=== PATIENT | male | born 1960 | race Caucasian/White ===

== ENCOUNTER 2024-09-23 21:27 | Emergency (ER) | payer OTHER, SELFPAY ==
--- NOTE | ~2024-09-23 | CT_ITS ---
EXAMINATION: CT brain wo con DATE: 09/23/2024 21:59 INDICATION: head injury . TECHNIQUE: Computed tomography (CT) of the head was performed without intravenous contrast. The mA wa s adjusted according to patient size. Iterative reconstruction technique was employed. The dose-lengt h product was 681.00 mGy-cm. COMPARISON: None. FINDINGS: No acute intracranial hemorrhage or extra-axial fluid collection. No hydrocephalus, mass, or herniation. No acute ischemic infarct. Unremarkable dural venous sinus attenuation. No acute osseous abnormality. Irregular lucent lesion in the midline frontal bone, with smooth overly ing cortices, without periosteal change, scalloping, or permeative change. Partial ethmoid opacification, the remaining aerated spaces are clear. Moderate atrophy and mild chronic white matter change. Atherosclerotic intracranial calcification. La rge area of encephalomalacia in the left middle cerebral artery territory, with significant extra-axi al dilatation of the left lateral ventricle. 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 IMPRESSION: No acute intracranial process. Lucent frontal bone lesion, without aggressive features. Recommend comparison to outside studies to a ssess stability. Reviewed, dictated and finalized at location K. MAN IMPRESSION: No acute intracranial process. Lucent frontal bone lesion, without aggressive features. Recommend comparison t o outside studies to assess stability.
--- NOTE | ~2024-09-23 | XR_ITS ---
EXAM: XR knee LT 3V DATE: 09/23/2024 22:10 HISTORY: trauma . COMPARISON: None available. FINDINGS: Normal mineralization. No fracture or dislocation. No lytic or blastic lesion. Mild tricom partmental osteoarthritis. No erosion or periosteal change. Atherosclerotic vascular calcifications. IMPRESSION: No acute osseous finding in the left knee. Reviewed, dictated and finalized at location K. 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
--- NOTE | ~2024-09-23 | XR_ITS ---
EXAM: XR hip LT 2V w AP pelvis DATE: 09/23/2024 22:10 HISTORY: trauma . COMPARISON: None available. FINDINGS: Normal mineralization. No fracture or dislocation. No lytic or blastic lesion. Mild bilate ral hip osteoarthritis. No erosion or periosteal change. Scattered vascular calcifications. Aortic en dograft. The distal end of the catheter projects over the right lower pelvis, possible suprapubic or Marsh catheter. The rectum is distended to 10.7 cm by formed stool. IMPRESSION: No acute osseous finding in the pelvis or bilateral hips. Possible fecal impaction. Reviewed, dictated and finalized at location K. PRESSER
[2024-09-23 16:23] VITALS: BP 115/85; PULSE 70; RESP 20; TEMP 36.3; O2SAT 94
--- NOTE | 2024-09-23 21:30 | ED.GENADULT ---
HPI - General Adult General Chief complaint: Urogenital-Male Stated complaint: Needs Suprapubic catheter changed History of Present Illness HPI narrative: 63-year-old male present to the emergency department for evaluation initially for complaint of urinary symptoms blood time of evaluation patient denies any abdominal pain and does complain of left hip and left knee pain after having a fall approximately 5 days ago. States he did strike his head but is unsure if he had any loss of consciousness. Related Data Allergies Allergy/AdvReac Type Severity Reaction Status Date / Time aspirin Allergy Intermediate Difficulty Verified 09/24/24 00:52 Breathing Penicillins AdvReac Mild Rash Verified 09/24/24 00:52 Review of Systems Review of Systems: All systems reviewed & are unremarkable except as noted in HPI and below Exam Narrative: APPEARANCE: Well appearing HEAD: normocephalic, atraumatic. EYES: PERRLA/EOMI, conjunctivae clear. NOSE: Normal no drainage EARS:TMS clear with good light reflex. THROAT: Pharynx clear, no exudate. NECK: Supple. No adenopathy, no masses. RESPIRATORY: Airway patent, respirations nonlabored. Clear to auscultation bilaterally, no rales, rhonchi, wheezing. CARDIOVASCULAR: Regular rate and rhythm without murmurs rubs or gallops. ABDOMINAL: Soft, nontender, nondistended, normal bowel sounds MUSCULOSKELETAL: Patient did complain of left hip and left knee pain NEURO: Alert. Cranial nerves II through XII intact. Grossly intact SKIN: Warm, dry. Normal Color Course Vital Signs Vital signs: Vital Signs Temperature 97.3 F L 09/23/24 16:23 Pulse Rate 70 09/23/24 16:23 Respiratory Rate 20 09/23/24 16:23 Blood Pressure 115/85 09/23/24 16:23 Pulse Oximetry 94 09/23/24 16:23 Temperature 98 F 09/24/24 00:54 Pulse Rate 63 09/24/24 00:54 Respiratory Rate 13 09/24/24 00:54 Blood Pressure 111/62 09/24/24 00:54 Pulse Oximetry 100 09/24/24 00:54 Medical Decision Making [facility] Narrative Medical decision making narrative: 63-year-old male presents emergency department for evaluation for a leaky suprapubic Marsh catheter. At time of evaluation patient was complaining of left leg pain. Imaging of hip and knee were negative. Patient reported having a fall few days ago so head CT was also ordered this was negative. UA was concerning for infection and patient was treated with IV Rocephin will be discharged back to his care facility on Rocephin. Suprapubic Marsh catheter could not be exchanged because we did not have the capability to lower the balloon. Marsh catheter does flush and drain without issue. Marsh bag was changed. prison was updated on the results of the workup and recommended follow-up. Differential Diagnosis Differential Diagnosis: COVID, RSV, influenza, hip fracture, knee fracture, UTI Vital Signs Vital Signs: Vital Signs Temperature 97.3 F L 09/23/24 16:23 Pulse Rate 70 09/23/24 16:23 Respiratory Rate 20 09/23/24 16:23 Blood Pressure 115/85 09/23/24 16:23 Pulse Oximetry 94 09/23/24 16:23 Temperature 98 F 09/24/24 00:54 Pulse Rate 63 09/24/24 00:54 Respiratory Rate 13 09/24/24 00:54 Blood Pressure 111/62 09/24/24 00:54 Pulse Oximetry 100 09/24/24 00:54 Lab Data Lab results reviewed: Yes I reviewed the patient's lab results. 09/23/24 22:37 09/23/24 22:37 Labs: Lab Results 09/23/24 09/23/24 Range/Units 22:37 22:59 WBC 9.6 (4.5-10.0) K/mm3 RBC 5.19 (4.6-6.20) M/mm3 Hgb 15.7 (14.0-18.0) g/dL Hct 47.7 (42.0-52.0) % MCV 91.9 (80-100) fl MCH 30.3 (26-34) pg MCHC 32.9 (32-36) g/dl RDW 14.1 (11.5-14.5) % Plt Count 139 L (150-375) k/mm3 MPV 9.2 (7.4-10.4) fl Immature Gran % (Auto) 0.3 (0-0.5) % Neut % (Auto) 77.1 H (45.5-73.1) % Lymph % (Auto) 11.2 L (18.3-44.2) % [place] % (Auto) 9.3 H (2.6-8.5) % Eos % (Auto) 1.7 (0-4.4) % Baso % (Auto) 0.4 (0.2-1.2) % Lymph # (Auto) 1.07 (0.9-3.2) K/mm3 [place] # (Auto) 0.9 H (0.1-0.6) K/mm3 Eos # (Auto) 0.2 (0-0.3) K/mm3 Baso # (Auto) 0.0 (0.0-0.1) K/mm3 Abs Immat Gran (auto) 0.03 (0.00-0.031) K/mm3 Absolute Neuts (auto) 7.4 H (1.3-6.7) K/mm3 Absolute Nucleated RBC 0.000 (0.0-0.012) K/mm3 Nucleated RBC % 0.0 (0.0-0.2) % % Immature Plt Fraction 2.0 (0.9-11.2) % PT 14.6 (11.1-14.7) Seconds INR 1.1 APTT 32.5 (22.3-36.8) Seconds Sodium 139 (137-145) mmol/L Potassium 4.3 (3.4-5.0) mmol/L Chloride 104 (98-107) mmol/L Carbon Dioxide 27 (22-30) mmol/L Anion Gap 8 (4-12) mmol/L BUN 22 H (9-20) mg/dL Creatinine 0.78 (0.7-1.3) mg/dL Estim Creat Clear Calc Not Reportable Estimated GFR > 60 (59 - ) Glucose 92 (65-110) mg/dL Calcium 9.5 (8.4-10.2) mg/dL Total Bilirubin 0.6 (0.2-1.3) mg/dL AST 30 (17-59) U/L ALT 40 (6-50) U/L Alkaline Phosphatase 144 H (38-126) U/L Total Protein 7.0 (6.3-8.2) g/dL Albumin 4.2 (3.5-5.1) g/dL Urine Color Dark yellow (Yellow) Urine Appearance Turbid H (Clear) Urine pH 5.5 (5.0-9.0) Ur Specific [place] 1.026 (1.001-1.035) Urine Protein 3+ H (Negative) mg/dL Urine Glucose (UA) Negative (Negative) mg/dL Urine Ketones Trace H (Negative) mg/dL Ur Blood (Man) 3+ H (Negative) Urine Nitrate Positive H (Negative) Urine Bilirubin 1+ H (Negative) Urine Urobilinogen 1.0 (<2.0) mg/dL Add Ur Microanalysis Reviewed Leukocyte Esterase Rfl 2+ H (Negative) LAZARO/UL Urine RBC >100 H (0-2) /hpf Urine WBC >100 H (0-3) /hpf Ur Squamous Epith Cells Moderate (Few) /hpf Urine Bacteria 4+ H /hpf Urine Casts >20 Imaging Data Radiologist's impression: Impressions Head CT 09/23/24 22:02 IMPRESSION: No acute intracranial process. Lucent frontal bone lesion, without aggressive features. Recommend comparison to outside studies to assess stability. Hip/Pelvis X-Ray 09/23/24 22:15 IMPRESSION: No acute osseous finding in the pelvis or bilateral hips. Possible fecal impaction. Knee X-Ray 09/23/24 22:17 IMPRESSION: No acute osseous finding in the left knee. Discharge Plan Discharge Clinical Impression: Urinary tract infection [facility] Dis[facility] Condition: Stable Instructions: Antibiotic Form Additional Instructions: Your suprapubic Marsh catheter needs to be exchanged. You are being started on antibiotics for urinary tract infection. Have close follow-up with your primary care physician to compare outpatient head CTs Patient Language: Amharic Prescriptions: New cephalexin 500 mg capsule 500 mg PO Q8H 7 Days Qty: 21 0RF Follow-up/Referrals: PHYSICIAN,RN INTERVENTIONAL [Primary Care Provider] -
[2024-09-23 22:15] VITALS: BP 120/70; PULSE 67; RESP 14; O2SAT 95
[2024-09-23 22:53] LABS: Basophils Percent Auto 0.4 % (0.2-1.2); Eosinophils Absolute Auto 0.2 K/mm3 (0-0.3); Eosinophils Percent Auto 1.7 % (0-4.4); Hematocrit 47.7 % (42.0-52.0); Hemoglobin 15.7 g/dL (14.0-18.0); Immature Granulocyte Absolute 0.03 K/mm3 (0.00-0.031); Immature Granulocyte Percent A 0.3 % (0-0.5); Lymphocytes Absolute Auto 1.07 K/mm3 (0.9-3.2); Lymphocytes Percent Auto 11.2 % (18.3-44.2); Mean Corpuscular HGB Conc 32.9 g/dl (32-36); Mean Corpuscular Hemoglobin 30.3 pg (26-34); Mean Corpuscular Volume 91.9 fl (80-100); Mean Platelet Volume 9.2 fl (7.4-10.4); Monocytes Absolute Auto 0.9 K/mm3 (0.1-0.6); Monocytes Percent Auto 9.3 % (2.6-8.5); Neutrophils Absolute Auto 7.4 K/mm3 (1.3-6.7); Neutrophils Percent Auto 77.1 % (45.5-73.1); Platelet Count Result 139 k/mm3 (150-375); Red Blood Count 5.19 M/mm3 (4.6-6.20); Red Cell Distribution Width 14.1 % (11.5-14.5); White Blood Count 9.6 K/mm3 (4.5-10.0)
[2024-09-23 23:00] LABS: Alanine Aminotransferase 40 U/L (6-50); Albumin Level 4.2 g/dL (3.5-5.1); Alkaline Phosphatase 144 U/L (38-126); Anion Gap 8 mmol/L (4-12); Aspartate Amino Transferase 30 U/L (17-59); Bilirubin,Total 0.6 mg/dL (0.2-1.3); Blood Urea Nitrogen 22 mg/dL (9-20); Calcium 9.5 mg/dL (8.4-10.2); Carbon Dioxide 27 mmol/L (22-30); Chloride 104 mmol/L (98-107); Estimated Glomerular Filt Rate > 60; Glucose 92 mg/dL (65-110); Potassium 4.3 mmol/L (3.4-5.0); Sodium 139 mmol/L (137-145)
[2024-09-23 23:02] LABS: INR 1.1; Prothrombin Time 14.6 Seconds (11.1-14.7)
[2024-09-23 23:03] LABS: Partial Thromboplastin Time 32.5 Seconds (22.3-36.8)
[2024-09-23] MEDS: SODIUM CHLORIDE 0.9% IV 1,000 ML 999 ML IV CONT (23:10)
[2024-09-23 23:55] LABS: Add Urine Microscopic? YES; Appearance Urine Turbid (Clear); Bacteria Urine 4+ /hpf; Bilirubin Urine 1+ (Negative); Blood Urine 3+ (Negative); Color Urine Dark Yellow (Yellow); Glucose Urine UA Negative (Negative); Ketones Urine Trace mg/dL (Negative); Leukocyte Esterase Ur 2+ LEU/UL (Negative); Need Manual Microscopic Reviewed; Nitrate Urine Positive (Negative); Non Pathogenic Casts >20; Protein Urine 3+ mg/dL (Negative); RBC Urine >100 /hpf (0-2); Specific Grav Ur 1.026 (1.001-1.035); Squamous Epithelial Cell Urine Moderate /hpf (Few); WBC Urine >100 /hpf (0-3); pH Urine 5.5 (5.0-9.0)
[2024-09-24 00:54] VITALS: BP 111/62; PULSE 63; RESP 13; TEMP 36.6; O2SAT 100
[2024-09-24 04:08] VITALS: BP 123/71; PULSE 66; RESP 19; O2SAT 100
--- NOTE | 2024-09-24 05:26 | PC.NURSE ---
this rn gave patient report to Faye caregiver at [facility] about patient discharge instructions.
--- NOTE | 2024-09-24 07:51 | PC.NURSE ---
Suprapubic cath replaced and draining at this time.
--- NOTE | 2024-09-24 12:01 | PC.NURSE ---
Attempted to call report without answer at [facility].
== END 2024-09-24 12:00 ==
PROVIDERS: Emergency Provider Emergency Medicine
DX: N39.0 Urinary tract infection, site not specified (principal); S79.912A Unspecified injury of left hip, initial encounter; S89.92XA Unspecified injury of left lower leg, initial encounter; W19.XXXA Unspecified fall, initial encounter
CPT/HCPCS: 36415; 51702; 51705; 70450; 73502; 73562; 80053; 81001; 85025; 85055; 85610; 85730; 87086; 87186; 96361; 96365; 99284; J0696; J7030

== ENCOUNTER 2025-03-24 14:27 | Emergency (ER) | payer OTHER, SELFPAY ==
--- NOTE | ~2025-03-24 | CT_ITS ---
CT abdomen pelvis wo con Ordering provider: Adilson Phelan MD History: 64 years Male with . Malfunctioning suprapubic. . Comparison: None. Technique: CT abdomen and pelvis without IV and without oral contrast. Automated exposure control and iterative reconstruction technique were employed. The dose-length product was 637.08 mGy-cm. Findings: VISUALIZED LOWER CHEST: Dependent atelectatic changes. Ascending aorta measures 4 cm. UPPER ABDOMINAL ORGANS: Liver: Normal. Gallbladder: Normal. Spleen: Normal. Calcified granulomas. Stomach/duodenum: Normal. Pancreas: Normal. Adrenals: 8 mm small left adrenal adenoma. No follow-up advised unless clinically warranted.. Kidneys: Tiny stone in the left and right kidney midpole. PELVIC ORGANS: The bladder shows thickened wall. Suprapubic catheter is noted with the tip near to th e anterior wall inside the bladder. Stones are seen in the area bladder with the largest measures 1.6 x 0.6 cm. Air bubbles are seen in the urinary bladder BOWEL AND MESENTERY: Colon: Fecal material is impacted in the rectum with slightly thickened wall. Proctitis is highly sug gestive. Fecal material is loaded in the colon. Appendix is not demonstrated. Small Bowel: Normal. No obstruction. Peritoneum/mesentery: No free air or free fluid. No mesenteric lymphadenopathy. RETROPERITONEUM: Stent graft is seen in the aorta and iliac arteries. Aneurysm is seen distal to the stent in the left iliac artery measuring 3.1 x 2.8 cm. Mild dilatation also seen distal to the right stent in the iliac artery which measures 1.9 cm. Moderate atheromatous disease of the abdominal aorta . No retroperitoneal lymphadenopathy. MUSCULOSKELETAL: Superficial soft tissues: The superficial soft tissues are normal. Bones: Age appropriate degenerative changes of the spine. Levoscoliosis. Bilateral hip osteoarthritic changes. IMPRESSION: 1. No evidence of appendicitis, diverticulitis or intestinal obstruction. 2. Ascending aorta measures 4 cm. 3. Aneurysmal dilatation in the left iliac artery beyond the age of the iliac stent. Slight dilatati on also seen in the right iliac artery just beyond the dose length. Vascular consultation advised.. 4. 8 mm left adrenal adenoma. No follow-up advised unless clinically warranted. 5. Tiny stones in the right and left kidney midpole. 6. Multiple stones in the urinary bladder. Thickened wall of cysts in the area bladder. Further eval uation advised. Suprapubic catheter with the tip seen just inside the urinary bladder. Advancement is advised. 7. Constipation with highly suggestive proctitis. Dr. Phelan was notified with the result of the patient at 8:50 PM on March 24, 2025 Reviewed, dictated and finalized at location A. IMPRESSION: 1. No evidence of appendicitis, diverticulitis or intestinal obstruction. 2. Ascending aorta measures 4 cm. 3. Aneurysmal dilatation in the left iliac artery beyond the age of the iliac stent. Slight dilatation also seen in the right iliac artery just beyond the do se length. Vascular consultation advised.. 4. 8 mm left adrenal adenoma. No follow-up advised unless clinically warranted . 5. Tiny stones in the right and left kidney midpole. 6. Multiple stones in the urinary bladder. Thickened wall of cysts in the area bladder. Further evaluation advised. Suprapubic catheter with the tip seen jus t inside the urinary bladder. Advancement is advised. 7. Constipation with highly suggestive proctitis. Dr. Phelan was notified with the result of the patient at 8:50 PM on March 24
[2025-03-24 14:30] VITALS: BP 110/69; PULSE 74; RESP 18; TEMP 36.8; O2SAT 95
[2025-03-24] MEDS: WATER FOR IRRIGATION, STERILE 500 ML BOTTLE (15:09)
[2025-03-24] MEDS: LORazepam INJ (*CRX) 2 MG/ML VIAL IM (16:03)
[2025-03-24] MEDS: HALOPERIDOL LACTATE 5 MG/ML VIAL IM (16:03)
[2025-03-24 17:09] LABS: Hematocrit 45.9 % (42.0-52.0); Hemoglobin 14.6 g/dL (14.0-18.0); Immature Granulocyte Percent A 0.3 % (0-0.5); Lymphocytes Absolute Auto 0.97 K/mm3 (0.9-3.2); Mean Corpuscular HGB Conc 31.8 g/dl (32-36); Mean Corpuscular Hemoglobin 29.7 pg (26-34); Mean Corpuscular Volume 93.3 fl (80-100); Nucleated Red Blood Cells Absolute Auto 0.000 K/mm3 (0.0-0.012); Nucleated Red Blood Cells Perc 0.0 % (0.0-0.2); Platelet Count Result 139 k/mm3 (150-375); Red Blood Count 4.92 M/mm3 (4.6-6.20); White Blood Count 6.3 K/mm3 (4.5-10.0)
[2025-03-24 17:25] LABS: Alanine Aminotransferase 26 U/L (6-50); Albumin Level 3.7 g/dL (3.5-5.1); Alkaline Phosphatase 103 U/L (38-126); Anion Gap 6 mmol/L (4-12); Aspartate Amino Transferase 29 U/L (17-59); Bilirubin,Total 0.2 mg/dL (0.2-1.3); Blood Urea Nitrogen 17 mg/dL (9-20); Calcium 9.1 mg/dL (8.4-10.2); Carbon Dioxide 28 mmol/L (22-30); Chloride 109 mmol/L (98-107); Estimated CRCL calculation 97 ml/min; Estimated Glomerular Filt Rate > 60; Glucose 97 mg/dL (65-110); Potassium 4.2 mmol/L (3.4-5.0); Sodium 143 mmol/L (137-145); Total Protein 6.8 g/dL (6.3-8.2)
[2025-03-24 19:09] VITALS: BP 110/52; PULSE 67; RESP 18; O2SAT 96
--- NOTE | 2025-03-24 20:37 | ED_ITS ---
HPI - General Adult General Chief complaint: Urogenital-Male Stated complaint: catheter issues Time Seen by Provider: 03/24/25 14:36 History of Present Illness HPI narrative: This is a 64-year-old male with a suprapubic catheter presenting for malfunctioning catheter. Patient has poor baseline mental status and cannot really tell us what the issue is. Any time we touch his suprapubic catheter he does screaming pain in becomes aggressive and violent. Related Data Allergies Allergy/AdvReac Type Severity Reaction Status Date / Time aspirin Allergy Intermediate Difficulty Verified 09/24/24 00:52 Breathing Penicillins AdvReac Mild Rash Verified 09/24/24 00:52 Exam 2 Narrative: APPEARANCE: Patient appears older than his stated age Head: atraumatic. EYES: EOMI, NOSE: Atraumatic NECK: Trachea midline RESPIRATORY: No increased rate of breathing CARDIOVASCULAR: RRR, ABDOMINAL: Unable to get a thorough exam due to patient agitation and aggressive behavior, suprapubic catheter is in place, unable to add or withdraw fluid to the balloon. MUSCULOSKELETAl: No obvious deformities NEURO: Alert. Moving 4/4 extremities SKIN:: Warm, dry. Normal color PSYCHIATRIC: Normal affect Course Vital Signs Vital signs: Vital Signs Temperature 98.3 F 03/24/25 14:30 Pulse Rate 74 03/24/25 14:30 Respiratory Rate 18 03/24/25 14:30 Blood Pressure 110/69 03/24/25 14:30 Pulse Oximetry 95 03/24/25 14:30 Temperature 98.3 F 03/24/25 14:30 Pulse Rate 67 03/24/25 19:09 Respiratory Rate 18 03/24/25 19:09 Blood Pressure 110/52 L 03/24/25 19:09 Pulse Oximetry 96 03/24/25 19:09 Medical Decision Making [facility] Narrative Medical decision making narrative: -Course: 64-year-old male presenting with malfunctioning suprapubic catheter. Patient is agitated and aggressive. Given Haldol and Ativan for staff safety. We are unable to either at remove fluid from the patient's balloon. We are unable to remove it due to severe pain. CT abdomen pelvis ordered to evaluate location. CT abdomen pelvis showed that the balloon appears to be lodged the patient's abdominal wall. Urology was consulted is I am unable to deflate the balloon to advance the catheter. Dr. Hussein was able to remove the catheter and placed a new Marsh. Urine is cloudy. 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 We will repeat that regiment. White count is normal. Vital signs are normal. Patient is at his baseline mental status and has no complaints. Patient will be discharged back to his snf. 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 This is an incidental finding and the patient has no complaints. His legs are well perfused with strong pulses. Vascular surgery was consulted at [facility]. Imaging reviewed by Dr. Alonso. Since the patient is asymptomatic there is no need for transfer and he can follow up outpatient. -DDX includes but is not limited to: Malposition balloon, malfunctioning Marsh, UTI Vital Signs Vital Signs: Vital Signs Temperature 98.3 F 03/24/25 14:30 Pulse Rate 74 03/24/25 14:30 Respiratory Rate 18 03/24/25 14:30 Blood Pressure 110/69 03/24/25 14:30 Pulse Oximetry 95 03/24/25 14:30 Temperature 98.3 F 03/24/25 14:30 Pulse Rate 67 03/24/25 19:09 Respiratory Rate 18 03/24/25 19:09 Blood Pressure 110/52 L 03/24/25 19:09 Pulse Oximetry 96 03/24/25 19:09 Lab Data 03/24/25 17:02 03/24/25 17:02 Labs: Lab Results 03/24/25 Range/Units 17:02 WBC 6.3 (4.5-10.0) K/mm3 RBC 4.92 (4.6-6.20) M/mm3 Hgb 14.6 (14.0-18.0) g/dL Hct 45.9 (42.0-52.0) % MCV 93.3 (80-100) fl MCH 29.7 (26-34) pg MCHC 31.8 L (32-36) g/dl RDW 14.3 (11.5-14.5) % Plt Count 139 L (150-375) k/mm3 MPV 9.0 (7.4-10.4) fl Immature Gran % (Auto) 0.3 (0-0.5) % Neut % (Auto) 70.6 (45.5-73.1) % Lymph % (Auto) 15.5 L (18.3-44.2) % [place] % (Auto) 10.7 H (2.6-8.5) % Eos % (Auto) 2.1 (0-4.4) % Baso % (Auto) 0.8 (0.2-1.2) % Lymph # (Auto) 0.97 (0.9-3.2) K/mm3 [place] # (Auto) 0.7 H (0.1-0.6) K/mm3 Eos # (Auto) 0.1 (0-0.3) K/mm3 Baso # (Auto) 0.1 (0.0-0.1) K/mm3 Abs Immat Gran (auto) 0.02 (0.00-0.031) K/mm3 Absolute Neuts (auto) 4.4 (1.3-6.7) K/mm3 Absolute Nucleated RBC 0.000 (0.0-0.012) K/mm3 Nucleated RBC % 0.0 (0.0-0.2) % Sodium 143 (137-145) mmol/L Potassium 4.2 (3.4-5.0) mmol/L Chloride 109 H (98-107) mmol/L Carbon Dioxide 28 (22-30) mmol/L Anion Gap 6 (4-12) mmol/L BUN 17 (9-20) mg/dL Creatinine 0.68 L (0.7-1.3) mg/dL Estim Creat Clear Calc 97 ml/min Estimated GFR > 60 (59 - ) Glucose 97 (65-110) mg/dL Calcium 9.1 (8.4-10.2) mg/dL Total Bilirubin 0.2 (0.2-1.3) mg/dL AST 29 (17-59) U/L ALT 26 (6-50) U/L Alkaline Phosphatase 103 (38-126) U/L Total Protein 6.8 (6.3-8.2) g/dL Albumin 3.7 (3.5-5.1) g/dL Discharge Plan Discharge Clinical Impression: Malfunction of Marsh catheter, Aneurysm artery, iliac Patient Disposition: Home Condition: Stable Instructions: Antibiotic Form, Dysuria (ED) Additional Instructions: Mo was seen for a clogged Marsh. His Marsh needs to be replaced once a month. He needs to complete a course of cefdinir for urinary tract infection. If he develops fevers, altered mental status or any new or worsening symptoms please return to the ED for re-evaluation. The patient has growing iliac artery aneurysms. These are asymptomatic. These can be followed on an outpatient basis with his vascular surgeon. Please arrange close follow-up for further workup and evaluation. Patient Language: Citizen Of [place] Prescriptions: New cefdinir 300 mg capsule 300 mg PO Q12H Qty: 20 0RF No Action cephalexin 500 mg capsule 500 mg PO Q8H 7 Days Qty: 21 0RF Follow-up/Referrals: UNKNOWN,DOCTOR [Primary Care Provider] -
[2025-03-24] MEDS: cefTRIAXone 1 GM in SODIUM CHLORIDE 0.9% IV 50 ML 100 ML IVPB (22:17)
[2025-03-24 22:29] LABS: Add Urine Microscopic? YES; Appearance Urine Turbid (Clear); Glucose Urine UA Negative (Negative); Leukocyte Esterase Ur 3+ LEU/UL (Negative); Need Manual Microscopic Reviewed; Nitrate Urine Negative (Negative); Non Pathogenic Casts >20; Specific Grav Ur 1.023 (1.001-1.035)
--- NOTE | 2025-03-24 22:42 | P.CONUR_ITS ---
Assessment and Plan Assessment and plan (1) Malfunction of Cali catheter: Code(s): T83.011A - Breakdown (mechanical) of indwelling urethral catheter, initial encounter Status: Acute Assessment and Plan: SP remove with gentle tug and replaced with 16f cali Plan Empiric abx Urine Cx pending d/c back to facility change SP tube monthly Urology Consult Note HPI Date Seen: 03/24/25 Requesting Physician: ED Primary Care Provider: UNKNOWN,DOCTOR Consult Narrative Narrative: Mo Fletcher is a 64 year old male with neurgenic bladder managed with SP tube. SP was not draining well and could not be removed. CT showed cath to be in good position with balloon deflated. Urine was foul smelling and cloudy, Review of Systems 2 Review of Systems: ROS unobtainable: Yes unobtainable due to mental status Genitourinary: Genitourinary: Reports oliguria (SP tube no draining well) Meds Home Medications and Allergies Home Medications ?Medication ?Instructions ?Recorded ?Confirmed ?Type cephalexin 500 mg capsule 500 mg PO Q8H 7 days #21 caps 09/24/24 Rx cefdinir 300 mg capsule 300 mg PO Q12H #20 caps 03/24/25 Rx Allergies Allergy/AdvReac Type Severity Reaction Status Date / Time aspirin Allergy Intermediate Difficulty Verified 09/24/24 00:52 Breathing Penicillins AdvReac Mild Rash Verified 09/24/24 00:52 Vital Signs Vital Signs - 24 hr 03/24/25 14:30 03/24/25 19:09 Temperature 36.8 C Pulse Rate 74 67 Respiratory Rate 18 18 Blood Pressure 110/69 110/52 L Pulse Oximetry 95 96 Results Labs 03/24/25 17:02 03/24/25 17:02 Labs: Short CBC 03/24/25 Range/Units 17:02 WBC 6.3 (4.5-10.0) K/mm3 Hgb 14.6 (14.0-18.0) g/dL Hct 45.9 (42.0-52.0) % Plt Count 139 L (150-375) k/mm3 BMP 03/24/25 17:02 Sodium 143 Potassium 4.2 Chloride 109 H Carbon Dioxide 28 BUN 17 Creatinine 0.68 L Glucose 97 Calcium 9.1 Liver Function 03/24/25 Range/Units 17:02 Total Bilirubin 0.2 (0.2-1.3) mg/dL AST 29 (17-59) U/L ALT 26 (6-50) U/L Alkaline Phosphatase 103 (38-126) U/L Albumin 3.7 (3.5-5.1) g/dL Urine 03/24/25 Range/Units 22:12 Urine Color Dark yellow (Yellow) Urine Appearance Turbid H (Clear) Urine pH 7.0 (5.0-9.0) Ur Specific [place] 1.023 (1.001-1.035) Urine Protein 3+ H (Negative) mg/dL Urine Glucose (UA) Negative (Negative) mg/dL
== END 2025-03-25 00:51 ==
PROVIDERS: Emergency Provider Emergency Medicine
DX: T83.020A Displacement of cystostomy catheter, initial encounter (principal); I72.3 Aneurysm of iliac artery; N31.9 Neuromuscular dysfunction of bladder, unspecified; N21.0 Calculus in bladder; D35.02 Benign neoplasm of left adrenal gland; K59.00 Constipation, unspecified; Y84.6 Urinary catheterization as the cause of abnormal reaction of the patient, or of later complication, without mention of misadventure at the time of the procedure
CPT/HCPCS: 36415; 51702; 51705; 74176; 80053; 81001; 85025; 96365; 96372; 99284; J0696; J1630; J2060

== ENCOUNTER 2025-06-20 12:32 | Emergency (ER) | payer OTHER, SELFPAY ==
[2025-06-20 12:44] VITALS: BP 124/59; PULSE 81; RESP 16; TEMP 37.1; O2SAT 96
--- NOTE | 2025-06-20 12:45 | PC.NURSE ---
Addendum entered by Kavita Felipe RN 06/20/25 14:54: Paperwork was later found in pt room on table as left by EMS. Original Note: Pt arrives to ED with soiled and saturated bed sheets, chucks, and several blankets. Several layers of bedding. There are large amount of discolored rings around the sheets indicating they dried several times before becoming saturated again. Gown is also soiled. Pt has stool in the depends as well. An empty brown coffee cup was found in the bedding. Pt has a depends on that is noted to be heavily soiled and falling apart, no longer intact. Foul odor from both bedding and patient. Pt is requesting to eat, states he has not had anything to eat today. Pt is A&Ox1, per EMS they did not get much of a report and was told pt is normally A&Ox2-3. No paperwork sent w/ pt and unable to obtain pt history.
--- NOTE | 2025-06-20 12:47 | PC.NURSE ---
catheter replaced by Dr. Kumar, tolerated well.
--- NOTE | 2025-06-20 12:48 | ED_ITS ---
HPI - General Adult General Chief complaint: Urogenital-Male Stated complaint: suprapubic catheter malfunction History of Present Illness HPI narrative: 64-year-old male presents emergency department for evaluation for urine leaking from around his suprapubic Marsh catheter. Patient does have a suprapubic catheter for extended period of time due to neurogenic bladder. Related Data Allergies Allergy/AdvReac Type Severity Reaction Status Date / Time aspirin Allergy Intermediate Difficulty Verified 09/24/24 00:52 Breathing Penicillins AdvReac Mild Rash Verified 09/24/24 00:52 Review of Systems Review of Systems: All systems reviewed & are unremarkable except as noted in HPI and below Exam Narrative: APPEARANCE: Agitated HEAD: normocephalic, atraumatic. EYES: PERRLA/EOMI, conjunctivae clear. NOSE: Normal no drainage EARS:TMS clear with good light reflex. THROAT: Pharynx clear, no exudate. NECK: Supple. No adenopathy, no masses. RESPIRATORY: Airway patent, respirations nonlabored. Clear to auscultation bilaterally, no rales, rhonchi, wheezing. CARDIOVASCULAR: Regular rate and rhythm without murmurs rubs or gallops. ABDOMINAL: Well-appearing suprapubic ostomy MUSCULOSKELETAL: Moves all extremities. Strength/ROM intact, No edema, No calf tenderness. NEURO: Alert and agitated SKIN: Warm, dry. Normal Color Course Vital Signs Vital signs: Vital Signs Temperature 98.8 F 06/20/25 12:44 Pulse Rate 81 06/20/25 12:44 Respiratory Rate 16 06/20/25 12:44 Blood Pressure 124/59 L 06/20/25 12:44 Pulse Oximetry 96 06/20/25 12:44 Temperature 98.8 F 06/20/25 12:44 Pulse Rate 63 06/20/25 13:41 Respiratory Rate 13 06/20/25 13:41 Blood Pressure 107/66 06/20/25 13:41 Pulse Oximetry 94 06/20/25 13:41 Procedures Catheter Insertion (Urinary) Urinary Catheter 1: Time of insertion: 12:49 Reason for placing: Yes Reason for placing indwelling catheter: Acute urinary retention Bladder scan/ultrasound used before catheterization: No Antiseptic solution prep: Povidone-Iodine Topical anesthesia used: No Catheter type/location: Suprapubic Size (Vietnamese): 16 Catheter balloon amount: 10 Results: successfully catheterized-immediate flow Procedure performed: without complications Medical Decision Making MDM Narrative Medical decision making narrative: 64-year-old male presents emergency department for evaluation for a clogged suprapubic catheter. This was changed to the emergency department and urine after the catheter exchanged does show concern for urinary tract infection. Patient was started on cefdinir due to previous urine cultures. New urine culture was ordered. Patient was started on antibiotic in the emergency departm ent discharged home on antibiotic. Patient's care facility was updated on the results of the workup plan for treatment. Differential Diagnosis Differential Diagnosis: Marsh catheter issue, Marsh catheter dislodgement, urinary tract infection, urinary colonization Vital Signs Vital Signs: Vital Signs Temperature 98.8 F 06/20/25 12:44 Pulse Rate 81 06/20/25 12:44 Respiratory Rate 16 06/20/25 12:44 Blood Pressure 124/59 L 06/20/25 12:44 Pulse Oximetry 96 06/20/25 12:44 Temperature 98.8 F 06/20/25 12:44 Pulse Rate 63 06/20/25 13:41 Respiratory Rate 13 06/20/25 13:41 Blood Pressure 107/66 06/20/25 13:41 Pulse Oximetry 94 06/20/25 13:41 Lab Data Labs: Lab Results 06/20/25 Range/Units 12:52 Urine Color Dark yellow (Yellow) Urine Appearance Turbid H (Clear) Urine pH 8.0 (5.0-9.0) Ur Specific [place] 1.014 (1.001-1.035) Urine Protein 3+ H (Negative) mg/dL Urine Glucose (UA) Negative (Negative) mg/dL Urine Ketones Negative (Negative) mg/dL Ur Blood (Man) 3+ H (Negative) Urine Nitrate Negative (Negative) Urine Bilirubin Negative (Negative) Urine Urobilinogen 1.0 (<2.0) mg/dL Add Ur Microanalysis Reviewed Leukocyte Esterase Rfl 3+ H (Negative) LAZARO/UL Urine RBC >100 H (0-2) /hpf Urine WBC >100 H (0-3) /hpf Ur Squamous Epith Cells Many H (Few) /hpf Triple Phos Crystals Present H (None) /hpf Urine Bacteria 4+ /hpf Urine Casts >20 Discharge Plan Discharge Clinical Impression: Urinary tract infection, Urinary catheter (Marsh) change required Patient Disposition: NH Snf/Asst Living Condition: Stable Instructions: Antibiotic Form, Urinary Tract Infection in Men (ED), Marsh Catheter Placement and Care (ED) Additional Instructions: Antibiotic as directed until completed. Have close follow-up with your primary care physician. Patient Language: Upper Sorbian Prescriptions: New cefdinir 300 mg capsule 300 mg PO Q12H 10 Days Qty: 20 0RF No Action cephalexin 500 mg capsule 500 mg PO Q8H 7 Days Qty: 21 0RF cefdinir 300 mg capsule 300 mg PO Q12H Qty: 20 0RF Follow-up/Referrals: UNKNOWN,DOCTOR [Primary Care Provider]
[2025-06-20 13:16] LABS: Add Urine Microscopic? YES; Appearance Urine Turbid (Clear); Glucose Urine UA Negative (Negative); Leukocyte Esterase Ur 3+ LEU/UL (Negative); Need Manual Microscopic Reviewed; Nitrate Urine Negative (Negative); Non Pathogenic Casts >20; Specific Grav Ur 1.014 (1.001-1.035)
[2025-06-20 13:41] VITALS: BP 107/66; PULSE 63; RESP 13; O2SAT 94
[2025-06-20] MEDS: CEFDINIR 300 MG CAPSULE PO (13:41)
--- NOTE | 2025-06-20 14:08 | PC.NURSE ---
Addendum entered by Kavita Felipe RN 06/20/25 14:53: Correct facility was determined to be [facility] w/ a PH# [phone], this RN called and gave nurse to nurse report to Lesia at the facility. No call back was received from [facility] and report was not given to this facility. Original Note: This RN attempted to call [facility] to give nurse to nurse report x 2 without success, was on 10 min hold w no answer. Spoke to Marybeth (law firm receptionist) who will give the staff the message and to call back for update on pt status and POC. Pt is currently on stretcher, eating snacks, pt states he is hungry and was not fed this morning. This RN also attempted to call family member Rachelle (noted as sibling under contacts) w/out success. PH# listed and that was attempted is: [phone]
--- NOTE | 2025-06-20 14:46 | PC.NURSE ---
This RN called for nurse to nurse report at [facility] in [place] to discuss pt results and POC. Report given, per Lesia, the staff has attempted to flush the suprapubic catheter for the last couple of days. This RN discussed the saturated linen and foul smell, poor hygiene and wet gown. Lesia states Well, we had been trying to flush it out. I will let the LOGISTICS AND PLANNING MANAGER coordinator know about the dirty bedding. Lesia then questioned if the catheter was sewn in due to He pulls on it. This RN stated it was not sewn in by the EDP but a fastener was placed on his thigh to keep it intact. Lesia verbalized understanding.
== END 2025-06-20 14:22 ==
LOC: ANHED 13:23
PROVIDERS: Emergency Provider Emergency Medicine
DX: T83.090A Other mechanical complication of cystostomy catheter, initial encounter (principal); N39.0 Urinary tract infection, site not specified; N31.9 Neuromuscular dysfunction of bladder, unspecified; Y84.6 Urinary catheterization as the cause of abnormal reaction of the patient, or of later complication, without mention of misadventure at the time of the procedure
CPT/HCPCS: 51702; 51705; 81001; 99283; A9270